=== PATIENT | male | born 2000 | race Caucasian/White ===

== ENCOUNTER 2021-01-24 21:00 | Emergency (ER) | payer OTHER ==
[~2021-01-24] VITALS: Ht 185.4 cm; Wt 100.0 kg
[2021-01-24 20:56] VITALS: BP 114/63
[2021-01-24 22:03] LABS: COVID AG,FIA SOURCE NASOPHARYNGEAL
[2021-01-24] MEDS ORDERED: ACETAMINOPHEN 500 MG TABLET PO ONE (22:30)
[2021-01-24] MEDS ORDERED: IBUPROFEN 800 MG TABLET PO ONE (22:30)
[2021-01-24 22:46] LABS: INFLUENZA TYPE A NEGATIVE FOR TYPE A (NEGATIVE); INFLUENZA TYPE B NEGATIVE FOR TYPE B (NEGATIVE)
== END 2021-01-24 23:40 | disposition home or self-care (01) ==
LOC: EMS 21:00
DX: R51.9 Headache, unspecified (principal); M79.18 Myalgia, other site; Z20.822 Contact with and (suspected) exposure to COVID-19
CPT/HCPCS: 87426; 87804; 99283; U0003